=== PATIENT | male | born 1970 | race Two or more races ===

== ENCOUNTER 2017-03-01 15:40 | Emergency (ER) | payer OTHER ==
--- NOTE | 2017-03-01 15:51 | PDOC ---
History of Present Illness - History of Present Illness Initial Comments: 03/01/17 16:17 Patient is a 46 year old male with significant medical hx of bipolar disorder, schizophrenia, malignant neuroleptic syndrome, and unspecified convulsions who is presenting to the ED today s/p fall. Today the patient fell out of a wheelchair this afternoon and hit the back of his head on the ground. The patient remembers the fall and did not experience any LOC. The patient also sustained a hematoma to the back of his head that is painful. Denies any LOC, nausea, vomiting, dizziness, lightheadedness, abdominal pain, chest pain or shortness of breath. PMH: Malignant neuroleptic syndrome, traumatic brain injury, dysphagia, encephalopathy, major depressive disorder, aphasia, bipolar disorder, paranoid schizophrenia, anxiety disorder, gastroduodenitis, unspecified convulsions, other lack of coordination, vitamin B12 deficiency anemias, dry eye syndrome of unspecified lacrimal gland, unspecified abdominal pain, apraxia Guardian: Marimar Huddleston [phone], home: [phone] Allergies: Haloperidol haloperidol lactate PMD: Jey Chacon MD [phone] ([place]) <Michelle Garcia - Last Filed: 03/01/17 16:16> <Nubia Tafoya - Last Filed: 03/01/17 19:27> - General Chief Complaint: Injury Stated Complaint: FALL Time Seen by Provider: 03/01/17 15:49 Past History <Michelle Garcia - Last Filed: 03/01/17 16:16> - Psycho/Social/Smoking Cessation Hx Anxiety: No Suicidal Ideation: No Smoking History: Former smoker Have you smoked in the past 12 months: No Hx Alcohol Use: No Drug/Substance Use Hx: No Substance Use Type: None <Nubia Tafoya - Last Filed: 03/01/17 19:27> - Past Medical History Allergies/Adverse Reactions: Allergies Allergy/AdvReac Type Severity Reaction Status Date / Time haloperidol [From Haldol] Allergy Verified 03/01/17 15:48 haloperidol lactate Allergy Verified 03/01/17 15:48 [From Haldol] Home Medications: Ambulatory Orders Acetaminophen 650 mg PO Q6H PRN 03/01/17 Aspirin [ASA -] 81 mg PO DAILY 03/01/17 Bisacodyl Suppository [Dulcolax Suppository -] 10 mg SD DAILY 03/01/17 Buspirone HCl [Buspar -] 10 mg PO TID 03/01/17 Divalproex Sprinkle [Depakote Sprinkle Caps -] 125 mg PO BID 03/01/17 Magnesium Hydrox 2400MG/30Ml [Milk of Magnesia -] 30 ml PO PRN PRN 03/01/17 Mirtazapine 30 mg PO DAILY 03/01/17 Na Phos,M-B/Na Phos,Di-Ba [Fleet Enema] 133 ml RC PRN PRN 03/01/17 Simvastatin 10 mg PO HS 03/01/17 Sorbitol Solution [Sorbitol] 30 ml PO HS 03/01/17 Review of Systems - Review of Systems Comments:: 03/01/17 16:23 GENERAL/CONSTITUTIONAL: No: fever, chills, weakness, loss of appetite. HEAD, EYES, EARS, NOSE AND THROAT: Yes: hematoma. No: change in vision, ear pain , discharge, sore throat, throat swelling. CARDIOVASCULAR: No: chest pain, lightheadedness, palpitations, syncope RESPIRATORY: No: cough, shortness of breath, wheezing, hemoptysis, stridor. GASTROINTESTINAL: No: nausea, vomiting, abdominal cramping, diarrhea, rectal bleeding, constipation. GENITOURINARY: No: dysuria, hematuria, frequency, urgency, flank pain. MUSCULOSKELET AL: No: back pain, neck pain, joint pain, muscle swelling or pain SKIN AND BREASTS: No: lesions, pallor, rash or easy bruising. NEUROLOGIC: No: headache, vertigo, paresthesias, weakness ENDOCRINE: No: unexplained weight gain or loss HEMATOLOGIC/LYMPHATIC: No: anemia, easy bleeding, swelling nodes <Jose,Michelle - Last Filed: 03/01/17 16:16> *Physical Exam - Vital Signs Last Vital Signs Temp Pulse Resp BP Pulse Ox 98.1 F 99 H 20 120/90 99 03/01/17 15:48 03/01/17 15:48 03/01/17 15:48 03/01/17 15:48 03/01/17 15:48 - Physical Exam Comments: 03/01/17 16:23 GENERAL: Nonverbal. Alert, awake. The patient is in no acute distress. HEAD: Small occipital hematoma, no laceration, no bleeding. EYES: PERRLA, EOMI, sclera anicteric, conjunctiva clear. ENT: Ears normal, nares patent, oropharynx clear without exudates. Moist mucous membranes. NECK: Normal range of motion, supple without lymphadenopathy, JVD, or masses. LUNGS: Breath sounds equal, clear to auscultation bilaterally. No wheezes, and no crackles. HEART:Regular rate and rhythm, normal S1 and S2 without murmur, rub or gallop. ABDOMEN: Soft, nontender, normoactive bowel sounds. No guarding, no rebound. EXTREMITIES: No deformities of his extremities. Normal range of motion, no edema. No clubbing or cyanosis. No erythema, or tenderness. NEUROLOGICAL: Nonverbal. Moving all extremities. Appropriately responds to questions. MUSCULOSKELETAL: Back non-tender to palpation, no CVA tenderness SKIN: Warm, Dry, normal turgor, no rashes or lesions noted. <Michelle Garcia - Last Filed: 03/01/17 16:16> Medical Decision Making - Medical Decision Making 03/01/17 15:50 A portion of this note was documented by scribe services under my direction. I have reviewed the details of the note, within reason, and agree with the documentation with the following case summary and management plan written by me. Nursing documentation reviewed and incorporated into medical decision making 03/01/17 19:12 46 yo M non verbal [facility] from wheel chair Pt fell from his wheelchair today, striking the back of his head No LOC No amnesia No vomiting No complaints of pain in any other location No preceding symptoms 03/01/17 19:25 On examination No deformities noted in any of pt limbs No tenderness to palpation Will do : Head CT Cspine CT CT: negative for ICH CT: negative for Cervical spine fracture Will discharge to home Clinical Impression: fall from wheelchair <Nubia Tafoya - Last Filed: 03/01/17 19:27> *DC/Admit/Observation/Transfer - Attestations Scribe Attestion: 03/01/17 16:29 Documentation prepared by Michelle Garcia, acting as medical records clerk for Nubia Tafoya MD. <Michelle Garcia - Last Filed: 03/01/17 16:16> - Discharge Dispostion Admit: No <Nubia Tafoya - Last Filed: 03/01/17 19:27> Diagnosis at time of Disposition: Fall from wheelchair Qualifiers: Encounter type: initial encounter Qualified Code(s): W05.0XXA - Fall from non- moving wheelchair, initial encounter Head trauma Qualifiers: Encounter type: initial encounter Qualified Code(s): S09.90XA - Unspecified injury of head, initial encounter - Discharge Dispostion Disposition: HOME Condition at time of disposition: Stable - Referrals Referrals: Scottie Galindo MD [Primary Care Provider] - - Patient Instructions Printed Discharge Instructions: DI for Closed Head Injury Additional Instructions: Return to the emergency department immediately with ANY new, persistent or worsening symptoms. Continue any medications as previously prescribed by your physician. You should follow up with your primary doctor as soon as possible regarding today's emergency department visit. . Please make sure your doctor reviews the results of your emergency evaluation. Thank you for coming to the Emergency Department today for your care. It was a pleasure to see you today. Please note that your evaluation is INCOMPLETE until you follow-up with your doctor.
[2017-03-01 16:06] VITALS: BP 120/90; PULSE 99; TEMP 98.1; BMI 25.4
== END 2017-03-01 22:32 ==
LOC: JER 15:40
DX: S00.03XA Contusion of scalp, initial encounter (principal); W05.0XXA Fall from non-moving wheelchair, initial encounter; Y92.128 Other place in nursing home as the place of occurrence of the external cause; F31.9 Bipolar disorder, unspecified; F20.9 Schizophrenia, unspecified; G21.0 Malignant neuroleptic syndrome; G40.909 Epilepsy, unspecified, not intractable, without status epilepticus
CPT/HCPCS: 70450-TC; 72125-TC; 99282-25

== ENCOUNTER 2017-08-19 17:32 | Emergency (ER) | payer OTHER ==
[2017-08-19 17:40] VITALS: TEMP 99; BMI 25.0
--- NOTE | 2017-08-19 17:47 | PDOC ---
History of Present Illness - General Chief Complaint: Pain Stated Complaint: CONSTIPATION Time Seen by Provider: 08/19/17 17:44 Past History - Past Medical History Allergies/Adverse Reactions: Allergies Allergy/AdvReac Type Severity Reaction Status Date / Time haloperidol [From Haldol] Allergy Verified 08/19/17 17:34 haloperidol lactate Allergy Verified 08/19/17 17:34 [From Haldol] Home Medications: Ambulatory Orders Acetaminophen 650 mg PO Q6H PRN 03/01/17 Aspirin [ASA -] 81 mg PO DAILY 03/01/17 Bisacodyl Suppository [Dulcolax Suppository -] 10 mg MT DAILY 03/01/17 Buspirone HCl [Buspar -] 10 mg PO TID 03/01/17 Divalproex Sprinkle [Depakote Sprinkle Caps -] 125 mg PO BID 03/01/17 Magnesium Hydrox 2400MG/30Ml [Milk of Magnesia -] 30 ml PO PRN PRN 03/01/17 Mirtazapine 30 mg PO DAILY 03/01/17 Na Phos,M-B/Na Phos,Di-Ba [Fleet Enema] 133 ml RC PRN PRN 03/01/17 Simvastatin 10 mg PO HS 03/01/17 Sorbitol Solution [Sorbitol] 30 ml PO HS 03/01/17 Cardiac Disorders: Yes CVA: Yes (subarachnoid hemorrhage) Psychiatric Problems: Yes (schiophrenia, depression, anxiety) Seizures: Yes Other medical history: TBI,NEUROLEPTIC MALIGNANT SYNDROME - Suicide/Smoking/Psychosocial Hx Smoking History: Never smoked Have you smoked in the past 12 months: No Information on smoking cessation initiated: No Hx Alcohol Use: No Drug/Substance Use Hx: No Substance Use Type: None *Physical Exam - Vital Signs Last Vital Signs Temp Pulse Resp BP Pulse Ox 99.0 F 105 H 18 132/88 94 L 08/19/17 17:34 08/19/17 17:34 08/19/17 17:34 08/19/17 17:34 08/19/17 17:34
--- NOTE | 2017-08-19 17:52 | PDOC ---
Attending Attestation - Resident Resident Name: KadeemzahidaJose - ED Attending Attestation I have performed the following: I have examined & evaluated the patient, The case was reviewed & discussed with the resident, I agree w/resident's findings & plan, Exceptions are as noted - HPI HPI: 08/19/17 17:49 46 yo male presents with c/o constipation PMH TBI,Malignant neuroleptic syndrome,SZS,encephalopathy - Physicial Exam PE: 08/19/17 20:43 46 yo male nonverbal with h/o TBI brought in by family for constipation =pt appears very uncomfortable -lungs cta b/l cvs [id number] abd -initially pt was crying and it was not clear what was hurting -rectal exam showed hard stool in rectal vault extremities -moving all extremites neuro alert - Medical Decision Making 08/19/17 20:56 after the fleets enema the patient had a large BM and his pain resolved -repeat abdominal exam did not show any focal tenderness --labs were unremarkable
[2017-08-19] MEDS ORDERED: SODIUM CHLORIDE 0.9% 1000 ML INFUS.BAG IV ONE (18:17)
[2017-08-19] MEDS ORDERED: morphine CARPU-JECT 4 MG/1 ML DISP.SYRIN IVPUSH ONE (18:17)
[2017-08-19] MEDS ORDERED: SODIUM PHOSPHATE/NA BIPHOS 133 ML ENEMA PR ONE (18:18)
--- NOTE | 2017-08-19 18:27 | PDOC ---
History of Present Illness - General Chief Complaint: Pain Stated Complaint: CONSTIPATION Time Seen by Provider: 08/19/17 17:44 History Source: Family Exam Limitations: Other (Mental/psychological condition) - History of Present Illness Initial Comments: 08/19/17 18:21 The patient is a 46M with an extensive psychiatric/neurologic PMH who presents to the ED with 3 days of abdominal pain. The history is provided entirely by the patient's parent's who are present in the room with him. The parents state that the patient has been complaining of abdominal pain x 3 days and has not used the bathroom today, which is abnormal for the patient who defecates once a day in the morning. No other history was able to be obtained. PMH: Malignant neuroleptic syndrome, traumatic brain injury, dysphagia, encephalopathy, major depressive disorder, aphasia, bipolar disorder, paranoid schizophrenia, anxiety disorder, gastroduodenitis, unspecified convulsions, other lack of coordination, vitamin B12 deficiency anemias, dry eye syndrome of unspecified lacrimal gland, unspecified abdominal pain, apraxia The patient's family states that he has not had any fever or chills or expressed pain with urination. They also deny a cough. Past History - Past Medical History Allergies/Adverse Reactions: Allergies Allergy/AdvReac Type Severity Reaction Status Date / Time haloperidol [From Haldol] Allergy Verified 08/19/17 17:34 haloperidol lactate Allergy Verified 08/19/17 17:34 [From Haldol] Home Medications: Ambulatory Orders Buspirone HCl [Buspar -] 10 mg PO TID 03/01/17 Mirtazapine 30 mg PO DAILY 03/01/17 Divalproex [Depakote -] 2,000 mg PO TID 08/19/17 Olanzapine 10 mg PO DAILY 08/19/17 Cardiac Disorders: Yes CVA: Yes (subarachnoid hemorrhage) Psychiatric Problems: Yes (schiophrenia, depression, anxiety) Seizures: Yes Other medical history: TBI,NEUROLEPTIC MALIGNANT SYNDROME - Suicide/Smoking/Psychosocial Hx Smoking History: Former smoker Have you smoked in the past 12 months: No Information on smoking cessation initiated: No Hx Alcohol Use: No Drug/Substance Use Hx: No Substance Use Type: None Review of Systems - Review of Systems Able to Perform ROS?: No (Patient's mental conditio) *Physical Exam - Vital Signs Last Vital Signs Temp Pulse Resp BP Pulse Ox 99.0 F 105 H 18 132/88 94 L 08/19/17 17:34 08/19/17 17:34 08/19/17 17:34 08/19/17 17:34 08/19/17 17:34 - Physical Exam General Appearance: Yes: Nourished, Appropriately Dressed, Other (Bedbound) HEENT: positive: Hearing Grossly Normal, Other (Crusts around lips). negative: Normal Voice Respiratory/Chest: positive: Lungs Clear, Normal Breath Sounds. negative: Respiratory Distress Cardiovascular: positive: Regular Rhythm, Regular Rate, S1, S2. negative: Diastolic Murmur, Systolic Murmur Gastrointestinal/Abdominal: positive: Tender (in RLQ), Flat, Soft, Tenderness. negative: Guarding, Rebound Extremity: negative: Swelling, Calf Tenderness Integumentary: positive: Dry, Warm ED Treatment Course - LABORATORY CBC & Chemistry Diagram: 08/19/17 18:30 08/19/17 18:30 Medical Decision Making - Medical Decision Making 08/19/17 18:34 The patient is a 46M with 3 days of abdominal pain. Due to the patient's mental/ psychological condition and an incomplete history, I have ordered basic labs and a abd/pelvis CT to rule out an occult cause of his abdominal pain. I will reassess when labs and imaging return. *DC/Admit/Observation/Transfer Diagnosis at time of Disposition: Constipation Qualifiers: Constipation type: unspecified constipation type Qualified Code(s): K59.00 - Constipation, unspecified - Discharge Dispostion Disposition: HOME - Patient Instructions Printed Discharge Instructions: DI for Constipation Additional Instructions: Please return to the ER if you experience concerning or worsening symptoms. Please follow up with your primary care provider to discuss your ER visit. You may use over the counter stool softeners to help with your symptoms such as Miralax or Colace.
[2017-08-19] MEDS ORDERED: morphine CARPU-JECT 10 MG/1 ML DISP.SYRIN ONE (18:32)
[2017-08-19 18:51] LABS: BASOPHIL 0.3 % (0-2.0); EOSINOPHIL 1.5 % (0-4.5); MCH 30.4 pg (25.7-33.7); MCHC 33.8 g/dl (32.0-35.9); MEAN PLT VOLUME 7.6 fl (7.5-11.1); NEUTROPHILS 74.5 % (42.8-82.8); PLATELET COUNT 254 K/MM3 (134-434); RDW 12.3 % (11.9-15.9); WHITE BLOOD COUNT 7.5 K/mm3 (4.0-10.0)
--- NOTE | 2017-08-19 19:23 | PDOC ---
*Physical Exam - Vital Signs Last Vital Signs Temp Pulse Resp BP Pulse Ox 99.0 F 105 H 18 132/88 99 08/19/17 17:34 08/19/17 17:34 08/19/17 17:34 08/19/17 17:34 08/19/17 18:35 - Physical Exam Comments: 08/19/17 19:23 General Appearance: Nourished. No Apparent Distress Neck: No Cervical Lymphadenopathy Respiratory/Chest: Lungs Clear, Normal Breath Sounds. No Crackles, Rales, Rhonchi, Wheezing Cardiovascular: Regular Rhythm, Regular Rate. No Murmur, Gallops, Rubs Gastrointestinal/Abdominal: Normal Bowel Sounds, Soft. Mild tenderness to palpation in the right lower quadrant. No Guarding, Rebound, Musculoskeletal: No CVA Tenderness Extremity: Normal Capillary Refill Integumentary: Normal Color, Dry, Warm ED Treatment Course - LABORATORY CBC & Chemistry Diagram: 08/19/17 18:30 08/19/17 18:30 - ADDITIONAL ORDERS Additional order review: 08/19/17 18:30 RBC 5.33 MCV 90.0 MCHC 33.8 RDW 12.3 MPV 7.6 Neutrophils % 74.5 Lymphocytes % 17.0 D Monocytes % 6.7 Eosinophils % 1.5 Basophils % 0.3 - Medications Given in the ED: ED Medications Discontinued Medications Generic Name Dose Route Start Last Admin Trade Name Freq PRN Reason Stop Dose Admin Morphine Sulfate 4 mg 08/19/17 18:17 08/19/17 18:27 Morphine Injection - IVPUSH 08/19/17 18:18 4 mg ONCE ONE Administration Sodium Chloride 1,000 ml 08/19/17 18:17 08/19/17 18:27 Normal Saline - IV 08/19/17 18:18 1,000 ml ONCE ONE Administration Sodium Phosphate 133 ml 08/19/17 18:18 08/19/17 18:20 Fleet Adult Rectal Enema - [place] 08/19/17 18:19 133 ml ONCE ONE Administration Progress Note - Progress Note Progress Note: Received sign out from Dr. Rader. Patient is a 46 year old male with a complicated PMH who presents with 3 days of abdominal pain and decreased bowel movements. Labs are pending and he has been given a stool softener. Dispo is pending lab results. Will continue to monitor and reassess. Medical Decision Making - Medical Decision Making 08/19/17 20:42 Patient has had a bowel movement and reports improvement in his pain and has a non-tender abdominal exam. The patient and his family are requesting discharged at this time. The patient's symptoms are likely due to constipation and we discussed with the family with adding in a regular OTC stool softener to help with the patients bowel movements. We are comfortable discharging the patient home at this time. The patient's family voiced understanding and is agreeable with the plan. *DC/Admit/Observation/Transfer Diagnosis at time of Disposition: Constipation Qualifiers: Constipation type: unspecified constipation type Qualified Code(s): K59.00 - Constipation, unspecified; K59.00 - Constipation, unspecified - Discharge Dispostion Disposition: HOME Condition at time of disposition: Improved Admit: No - Patient Instructions Printed Discharge Instructions: DI for Constipation Additional Instructions: Please return to the ER if you experience concerning or worsening symptoms. Please follow up with your primary care provider to discuss your ER visit. You may use over the counter stool softeners to help with your symptoms such as Miralax or Colace.
[2017-08-19 19:26] LABS: ALBUMIN 3.7 g/dl (3.4-5.0); ANION GAP 9 (8-16); BILIRUBIN,TOTAL 0.5 mg/dL (0.2-1.0); CALCIUM 9.7 mg/dL (8.5-10.1); CO2 29 mmol/L (21-32); CREATININE 0.9 mg/dL (0.7-1.3); GLUCOSE,RANDOM 96 mg/dL (74-106); SGOT/AST 15 U/L (15-37); SGPT/ALT 15 U/L (12-78); TOT PROT 8.1 g/dl (6.4-8.2)
[2017-08-19 19:27] LABS: ALK PHOS 62 U/L (45-117)
[2017-08-19 20:58] VITALS: BP 130/90; PULSE 88
--- NOTE | 2017-08-20 22:25 | EKG ---
Test Reason : Blood Pressure : / mmHG Vent. Rate : 099 BPM Atrial Rate : 099 BPM P-R Int : 176 ms QRS Dur : 070 ms QT Int : 326 ms P-R-T Axes : 037 042 023 degrees QTc Int : 418 ms NORMAL SINUS RHYTHM BASELINE ARTIFACT EARLY TRANSITION IN V2 NONSPECIFIC T WAVE ABNORMALITY ABNORMAL ECG NO PREVIOUS ECGS AVAILABLE REPEAT EKG IF CLINICALLY INDICATED Confirmed by KAROLINE LORENZO MD ([id number]) on 08/20/2017 10:24:57 PM Referred By: Confirmed By:KAROLINE LORENZO MD
== END 2017-08-19 20:55 | disposition home or self-care (01) ==
LOC: JER 17:32
PROC: 3E033NZ Introduction of Analgesics, Hypnotics, Sedatives into Peripheral Vein, Percutaneous Approach (ICD-10-PCS; principal; 2017-08-19)
PROC: 3E0337Z Introduction of Electrolytic and Water Balance Substance into Peripheral Vein, Percutaneous Approach (ICD-10-PCS; 2017-08-19)
DX: K59.00 Constipation, unspecified (principal); F17.210 Nicotine dependence, cigarettes, uncomplicated; F20.9 Schizophrenia, unspecified; F41.8 Other specified anxiety disorders; I51.9 Heart disease, unspecified; G21.0 Malignant neuroleptic syndrome
CPT/HCPCS: 36415; 80053; 83690; 85025; 93005; 93010; 99285-25

== ENCOUNTER 2017-09-24 16:24 | Emergency (ER) | payer OTHER ==
--- NOTE | 2017-09-24 16:47 | PDOC ---
History of Present Illness - General History Source: Patient, Family Exam Limitations: Clinical Condition (Non verbal on baseline, able to write his wishes ) - History of Present Illness Initial Comments: 09/24/17 18:16 The patient is a 46 year old male presenting with his family, with a significant past medical history of schizophrenia, depression, anxiety, subarachnoid hemorrhage and seizures, who presents to the emergency department with a possible chocking episode. The family states that the patient started having a chocking episode and they attempted the heimlich maneuver before coming to the ED. The patient is nonverbal on baseline and is able to write. He wrote that he was not chocking, that he was coughing and that he is annoyed that he was brought to the ED. The patient resides with his family. The patient denies chest pain, shortness of breath, headache and dizziness. Denies fever, chills, nausea, vomit, diarrhea and constipation. Denies dysuria, frequency, urgency and hematuria. Allergies: Haldol Past surgical history: None reported Social history: No alcohol, tobacco or drug use reported <Erick Roberto - Last Filed: 09/24/17 18:15> <Marissa Quigley - Last Filed: 09/25/17 03:15> - General Stated Complaint: DIFF BREATHING Time Seen by Provider: 09/24/17 16:46 Past History <Erick Roberto - Last Filed: 09/24/17 18:15> - Past Medical History Cardiac Disorders: Yes CVA: Yes (subarachnoid hemorrhage) Psychiatric Problems: Yes (schiophrenia, depression, anxiety) Seizures: Yes - Suicide/Smoking/Psychosocial Hx Smoking History: Former smoker Have you smoked in the past 12 months: No Hx Alcohol Use: No Drug/Substance Use Hx: No Substance Use Type: None <Marissa Quigley - Last Filed: 09/25/17 03:15> - Past Medical History Allergies/Adverse Reactions: Allergies Allergy/AdvReac Type Severity Reaction Status Date / Time haloperidol [From Haldol] Allergy Verified 09/24/17 17:10 haloperidol lactate Allergy Verified 09/24/17 17:10 [From Haldol] Home Medications: Ambulatory Orders Buspirone HCl [Buspar -] 10 mg PO TID 03/01/17 Mirtazapine 30 mg PO DAILY 03/01/17 Divalproex [Depakote -] 2,000 mg PO TID 08/19/17 Olanzapine 10 mg PO DAILY 08/19/17 Review of Systems - Review of Systems Able to Perform ROS?: Yes Comments:: 09/24/17 18:16 GENERAL/CONSTITUTIONAL: No fever or chills. No weakness. HEAD, EYES, EARS, NOSE AND THROAT: No change in vision. No ear pain or discharge. No sore throat.- CARDIOVASCULAR: No chest pain or shortness of breath RESPIRATORY: (+) Cough. No wheezing, or hemoptysis. GASTROINTESTINAL: No nausea, vomiting, diarrhea or constipation. GENITOURINARY: No dysuria, frequency, or change in urination. MUSCULOSKELETAL: No joint or muscle swelling or pain. No neck or back pain. SKIN: No rash NEUROLOGIC: No headache, vertigo, loss of consciousness, or change in strength/ sensation. ENDOCRINE: No increased thirst. No abnormal weight change HEMATOLOGIC/LYMPHATIC: No anemia, easy bleeding, or history of blood clots. ALLERGIC/IMMUNOLOGIC: No hives or skin allergy. <Erick Roberto - Last Filed: 09/24/17 18:15> *Physical Exam - Vital Signs Last Vital Signs Temp Pulse Resp BP Pulse Ox 98.2 F 100 H 20 122/89 100 09/24/17 16:27 09/24/17 18:06 09/24/17 18:06 09/24/17 18:06 09/24/17 18:06 - Physical Exam Comments: 09/24/17 18:17 GENERAL: Awake, alert, and fully oriented, in no acute distress HEAD: No signs of trauma, normocephalic, atraumatic EYES: PERRLA, EOMI, sclera anicteric, conjunctiva clear ENT: Auricles normal inspection, hearing grossly normal, nares patent, oropharynx clear without exudates. Moist mucosa NECK: Normal ROM, supple, no lymphadenopathy, JVD, or masses LUNGS: No distress, speaks full sentences, clear to auscultation bilaterally HEART: (+) Tachycardic, normal S1 and S2, no murmurs, rubs or gallops, peripheral pulses normal and equal bilaterally. ABDOMEN: Soft, nontender, normoactive bowel sounds. No guarding, no rebound. No masses EXTREMITIES : Normal inspection, Normal range of motion, no edema. No clubbing or cyanosis. NEUROLOGICAL: Cranial nerves II through XII grossly intact. Moving all extremities. Able to partiipate in his exam although he has chronic Dysphagia. Nonverbal on baseline and is able to express his wishes through writing. SKIN: Warm, Dry, normal turgor, no rashes or lesions noted. <Erick Roberto - Last Filed: 09/24/17 18:15> Medical Decision Making - Medical Decision Making 09/25/17 03:10 46-year-old male with a past medical history of traumatic brain injury and schizophrenia. Brought in by ambulance from home after having an apparent choking episode. His father states that his other son gave this patient a Heimlich manuver and then called 911 This patient is very upset because he felt he did not need to come to the ER. He actually is nonverbal, but he wrote this down on a piece of paper for us cxr napd pt was not in any respiratory distress and calmed down when he realized he was OK pt discharged home <Marissa Quigley - Last Filed: 09/25/17 03:15> *DC/Admit/Observation/Transfer - Attestations Scribe Attestion: 09/24/17 18:17 Documentation prepared by Erick Roberto, acting as medical information specialist for Marissa Quigley MD <Erick Roberto - Last Filed: 09/24/17 18:15> <Marissa Quigley - Last Filed: 09/25/17 03:15> Diagnosis at time of Disposition: Choking episode - Discharge Dispostion Disposition: HOME Condition at time of disposition: Stable - Referrals Referrals: Melanie Machado MD [Primary Care Provider] - - Patient Instructions Printed Discharge Instructions: DI for Choking Episode Additional Instructions: RETURN FOR ANY CONCERNING SYMPTOMS
[2017-09-24 17:40] VITALS: TEMP 98.2; BMI 23.1
[2017-09-24 18:09] VITALS: BP 122/89; PULSE 100
== END 2017-09-24 18:08 | disposition home or self-care (01) ==
LOC: JER 16:24
DX: T17.998A Other foreign object in respiratory tract, part unspecified causing other injury, initial encounter (principal); X58.XXXA Exposure to other specified factors, initial encounter; Y93.89 Activity, other specified; Y92.038 Other place in apartment as the place of occurrence of the external cause; F41.8 Other specified anxiety disorders; F20.9 Schizophrenia, unspecified; Z86.69 Personal history of other diseases of the nervous system and sense organs; Z86.73 Personal history of transient ischemic attack (TIA), and cerebral infarction without residual deficits
CPT/HCPCS: 71010-TC; 99282-25

== ENCOUNTER 2018-07-31 09:01 | Day surgery (SDC) | payer OTHER ==
[2018-07-30 14:07] VITALS: BMI 22.1
[2018-07-31 10:57] VITALS: TEMP 97.8
[2018-07-31 12:18] VITALS: BP 122/82; PULSE 61
== END 2018-07-31 12:15 | disposition home or self-care (01) ==
LOC: JASU-ENDO 09:01
PROVIDERS: ATTEND Internal Medicine Gastroenterology
PROC: 0DJD8ZZ Inspection of Lower Intestinal Tract, Via Natural or Artificial Opening Endoscopic (ICD-10-PCS; principal; 2018-07-31 10:45)
DX: R19.4 Change in bowel habit (principal); Q27.33 Arteriovenous malformation of digestive system vessel